=== PATIENT | female | born 1970 | race Caucasian/White ===

== ENCOUNTER 2020-12-18 20:10 | Emergency (ER) | payer OTHER ==
[2020-12-18] MEDS ORDERED: LORazepam 2 MG/ML SDV IVPUSH ONE ×2 (20:36→22:35)
[2020-12-18] MEDS ORDERED: Ondansetron 4 MG/2 ML SDV IVPUSH ONE (20:36)
[2020-12-18] MEDS ORDERED: Sodium Chloride 0.9% 2.5 ML Syringe FLUSH PRN (20:36)
[2020-12-18] MEDS ORDERED: Sodium Chloride 0.9% 1,000 ML IV ONE ×2 (20:36→22:41)
[2020-12-18] MEDS ORDERED: Sodium Chloride 0.9% 10 ML Syringe FLUSH PRN (20:36)
[2020-12-18 21:40] LABS: BLOOD UREA NITROGEN,BUN 4 mg/dL (7.0-18.0); CARBON DIOXIDE,CO2 19.7 mmol/L (21.0-32.0); CHLORIDE,CL 89 mmol/L (98-107); GLUCOSE RANDOM 108 mg/dL (74-106); LIPASE 157 U/L (73-393); POTASSIUM,K 3.9 mmol/L (3.5-5.1); SODIUM,NA 126 mmol/L (136-145)
--- NOTE | 2020-12-18 21:56 | CR ---
INDICATION: Weakness TECHNIQUE: Single view chest. FINDINGS: The lungs are clear. The heart, mediastinum and pulmonary vessels are of normal size. There is no evidence of pleural disease. IMPRESSION: Negative chest. Dictated by Senait Moreno MD @ 12/18/2020 9:54:[address] Senait Moreno @ Dec 18 2020 9:54PM
--- NOTE | 2020-12-18 22:00 | CT ---
Indication: Weakness Technique: Noncontrast head Comparison: No comparison Findings: Axial noncontrast images through the brain parenchyma demonstrates no acute intracranial hemorrhage or mass. No midline shift. No abnormal extra-axial air fluid collections. Paranasal sinuses masters cells skull and scalp appear unremarkable aside from mucosal thickening ethmoid air cells. Impression: No acute intracranial hemorrhage or mass. Please note that all CT scans at this facility use dose modulation, iterative reconstruction, and/or weight-based dosing when appropriate to reduce radiation dose to as low as reasonably achievable. Dictated by Senait Moreno MD @ 12/18/2020 9:58:[address] Senait Moreno @ Dec 18 2020 9:58PM
[2020-12-18] MEDS ORDERED: Aspirin 81 MG Tab.Chew PO ONE (22:18)
[2020-12-18] MEDS ORDERED: Enoxaparin 60 MG/0.6 ML Syringe SUBCUT ONE (22:20)
[2020-12-18] MEDS ORDERED: Thiamine 200 MG/2 ML MDV IVPUSH ONE (22:41)
[2020-12-18] MEDS ORDERED: Folic Acid 50 MG/10 ML MDV IV SCH (22:45)
[2020-12-18] MEDS ORDERED: Iopamidol 755 MG/ML 500 ML Multipack Bottle IVPUSH STA (23:59)
--- NOTE | 2020-12-19 00:56 | CT ---
INDICATION: Shortness of breath COMPARISON: none TECHNIQUE: CT volumetric acquisition was performed of the thorax during intravenous infusion of 100 cc of Isovue 370 nonionic intravenous contrast. Please note that all CT scans at this facility use dose modulation, iterative reconstruction, and/or weight-based dosing when appropriate to reduce radiation dose to as low as reasonably achievable. FINDINGS: The CT images are of acceptable quality and demonstrate normal uniform vascular enhancement within the pulmonary arteries. There are no suspicious filling defects which would indicate pulmonary thromboemboli. There is no evidence of pleural or pericardial fluid. The heart and thoracic aorta appear normal. There is no evidence of lymphadenopathy within the central mediastinum or within either axilla. On lung window settings, there is no evidence of pneumothorax. The pulmonary parenchyma has uniform density and there is no evidence of hemorrhage or pneumonia. 3 centimeter hiatal hernia is present. There is fatty infiltration of the liver. Thyroid normal. IMPRESSION: No evidence of pulmonary thromboembolism. Please note that all CT scans at this facility use dose modulation, iterative reconstruction, and/or weight-based dosing when appropriate to reduce radiation dose to as low as reasonably achievable. Dictated by Yunier Majano MD @ 12/19/2020 12:55:[address] Yunier Majano @ Dec 19 2020 12:55AM
--- NOTE | 2020-12-19 01:33 | EDM.PDOC ---
ED HPI GENERAL MEDICAL PROBLEM - General Chief Complaint: Headache Stated Complaint: SHAKY, HEADACHES, NAUSEA Time Seen by Provider: 12/18/20 20:28 - History of Present Illness INITIAL COMMENTS - FREE TEXT/NARRATIVE: HISTORY AND PHYSICAL: History of present illness: This is a 50-year-old female with no significant past medical history who presents to the ER today secondary to generalized weakness, malaise, headaches, nausea for approximately 2 to 3 weeks. Patient reports that the precipitating factor today that brought her to the ED was 3-4 episodes of emesis with some nausea. Reports headache was worsening. Denies any recent fevers, shakes, chills. Denies any shortness of breath, diaphoresis, pain rating to her arms or back. She does report that she has occasional episodes of chest pain but usually in the morning when she is caring for her mother. Patient reports that she came here in mid October from [place] to care for her mother and feels that she gets extremely stressed around her mother and thinks that the pain that she experiences is secondary to anxiety. She reports that she has had no further chest pain throughout the course of the entire day and has no pain currently. Patient denies any dysuria, frequency, urgency. Patient denies any abdominal pain or discomfort. Patient denies any melena or bright red blood per rectum. Patient denies any coffee-ground emesis or hematemesis. Patient reports her last p.o. intake was yesterday although she does admit to having 2 alcoholic beverages approximately 2 PM today. Patient reports that she drinks approximately 3-4 drinks daily. Patient denies any history of alcohol withdrawal or detox in the past. Patient has any recent cough cold or congestion. Patient denies any Covid exposures or concerns. Patient denies any pain rating to her back. Patient reports that prior to coming to [place] her doctor had started her on Prempro for perimenopausal mood swings. She reports that she thought that the Prempro was causing some of her symptoms so she stopped it but is still having persistent nausea headache and malaise despite stopping the Prempro. Review of systems: As per history of present illness and below otherwise all systems reviewed and negative. Past medical history: As per history of present illness and as reviewed below otherwise noncontributory. Surgical history: As per history of present illness and as reviewed below otherwise noncontributory. Social history: No reported history of drug abuse. Family history: As per history of present illness and as reviewed below otherwise noncontributory. Physical exam: This patient was seen and evaluated during the 2019 SARS-CoV-2 novel coronavirus pandemic period. Community viral transmission is ongoing at time of this encounter and the emergency department is operating under pandemic response procedures. Constitutional: Patient is oriented to person, place, and time. Appears well- developed and well-nourished. No distress. HEENT: Moist mucous membranes Head: Normocephalic and atraumatic Eyes: Right eye exhibits no discharge. Left eye exhibits no discharge. No scleral icterus Neck: Normal range of motion. No tracheal deviation present. Cardiovascular: Normal rate and regular rhythm. No murmurs gallops or rubs. Pulmonary: Effort normal, no respiratory distress. No wheezing rales or rhonchi Abdominal: No distention. Soft nontender nondistended no rebound or guarding. Musculoskeletal: Normal range of motion. No peripheral edema. Neurologic: Alert and oriented to person, place and time. Positive tremulous Skin: [place], warm and dry. Psychiatric: Normal mood and affect. Behavior is normal. Judgment and thought content normal. Nursing note and vital signs have been reviewed Patient's ER physical exam is significant for a well-developed well-nourished 50-year-old female who appears to be in no acute distress but does appear to be somewhat tremulous, tachycardic with a heart rate of 110, slightly hypertensive. Although patient denies any history of significant alcohol abuse or alcohol withdrawal, the patient does appear to have signs that could be possibly related to alcohol withdrawal. Diagnostics: CBC, CMP, within normal limits. Patient's troponin was markedly elevated at 3.12. EKG: EKG date December 18, 2020 9:54 PM As interpreted by ER physician: Chhaya: Nonspecific ST-T wave abnormalities Normal axis No evidence of ST elevation FL Normal sinus rhythm heart rate of 98 EKG #2: EKG date December 18, 2020 at 11:47 PM EKG: As interpreted by ER physician: Chhaya: Nonspecific ST-T wave abnormalities Normal axis No evidence of ST elevation FL Reentrant tachycardia with retrograde P waves with a heart rate of 122 EKG #3: EKG date December 18, 2020 at 11:57 PM EKG: As interpreted by ER physician: Chhaya: Nonspecific ST-T wave abnormalities Normal axis No evidence of ST elevation FL Sinus tachycardia with a heart rate of 103 Chest Xray: Normal cardiac silhouette No infiltrates or effusions identified. No PTX No evidence of acute bony fracture. As interpreted by ER MD: Chhaya CT scan reveals no evidence of PE/dissection NSS x2 L, Therapeutics: [] NSS x2 L, Zofran, thiamine, MVI, folic acid Lovenox 80 mg subcu Aspirin 324 p.o. chewed Ativan 1 mg, Ativan 2 mg IV Assessment and plan: This is a 50-year-old female who presents ER today with signs and symptoms are concerning for possible alcohol withdrawal. Patient's alcohol was noted to be 127 in the ED despite telling me that her last drink was at 2 PM and that she only had 2 drinks today. Patient was treated initially for alcohol withdrawal symptoms with IV fluids, Zofran thiamine multivitamin folic acid. Patient's EKG did not show any evidence of ST elevation FL. After obtaining her troponin, I requestion patient regarding her chest pain and once again she reiterated that she does not have any pain in her chest at the present time and the last time that she had pain was approximately 10 AM today while she was caring for her mother. Patient had EKGs repeated multiple times in the ED with no evidence of ST elevation FL. Patient second EKG did reveal that she was tachycardic with a reentrant tachycardia with retrograde P waves. This resolved spontaneously after short amount time and currently she is in sinus rhythm with a heart rate of 98 on the EKG. Case was discussed with Dr. Beyer in [facility] and she has agreed to assist this with further care of this patient. Case was reviewed by Dr. Crow who is a optical glass inspector and he had no further recommendations prior to transfer. Given the time sensitive matter of a patient with a non-STEMI and the current lack of transfer by ground I feel that the patient absolutely needs to be sent expeditiously to prevent any poor outcome if she should start developing any oth er abnormalities on her EKG or monitor. Patient will be sent by fixed wing to [facility]. Critical Care: The high probability of sudden, clinically significant deterioration in the patient's condition required the highest level of my preparedness to intervene urgently. The services I provided to this patient were to treat and/or prevent clinically significant deterioration. Services included the following: chart data review, reviewing nursing notes and/or old charts, documentation time, talent development consultant collaboration regarding findings and treatment options, medication orders and management, direct patient care, vital sign assessments and ordering, interpreting and reviewing diagnostic studies/lab tests. Aggregate critical care time includes only time during which I was engaged inwork directly related to the patient's care, as described above, whether at the bedside or elsewhere in the Emergency Department. It did not include time spent performing other reported procedures or the services of residents, students, nurses or physician assistants. Critical Care Time: 35 minutes Definitive disposition and diagnosis as appropriate pending reevaluation and review of above. - Related Data Allergies Allergy/AdvReac Type Severity Reaction Status Date / Time sulfamethoxazole Allergy Other Verified 12/18/20 20:31 [From ] trimethoprim [From ] Allergy Other Verified 12/18/20 20:31 Home Meds: Home Meds . [No Known Home Meds] 12/19/20 [History] Past Medical History Cardiovascular History: Reports: Hypertension Psychiatric History: Reports: Depression Social & Family History - Tobacco Use Tobacco Use Status *Q: Never Tobacco User - Recreational Drug Use Recreational Drug Use: No ED ROS GENERAL - Review of Systems Review Of Systems: See Below ED EXAM, GENERAL - Physical Exam Exam: See Below Course - Vital Signs Last Recorded V/S: Last Vital Signs Temp 96.6 F L 12/18/20 20:29 Pulse 101 H 12/19/20 01:28 Resp 20 12/19/20 01:28 BP 125/76 12/19/20 01:28 Pulse Ox 98 12/19/20 01:28 - Orders/Labs/Meds Labs: Laboratory Tests 12/18/20 12/18/20 12/18/20 Range/Units 20:55 20:55 22:32 WBC 8.93 (4.0-11.0) K/uL RBC 4.34 (4.30-5.90) M/uL Hgb 14.8 (12.0-16.0) g/dL Hct 40.3 (36.0-46.0) % MCV 92.9 (80.0-98.0) fL MCH 34.1 H (27.0-32.0) pg MCHC 36.7 (31.0-37.0) g/dL RDW Std Deviation 44.5 (28.0-62.0) fl RDW Coeff of Denae 13 (11.0-15.0) % Plt Count 282 (150-400) K/uL MPV 8.90 (7.40-12.00) fL Neut % (Auto) 73.8 (48.0-80.0) % Lymph % (Auto) 12.1 L (16.0-40.0) % [place] % (Auto) 13.3 (0.0-15.0) % Eos % (Auto) 0.2 (0.0-7.0) % Baso % (Auto) 0.6 (0.0-1.5) % Neut # (Auto) 6.6 H (1.4-5.7) K/uL Lymph # (Auto) 1.1 (0.6-2.4) K/uL [place] # (Auto) 1.2 H (0.0-0.8) K/uL Eos # (Auto) 0.0 (0.0-0.7) K/uL Baso # (Auto) 0.1 (0.0-0.1) K/uL Nucleated RBC % 0.0 /100WBC Nucleated RBCs # 0 K/uL Sodium 126 L (136-145) mmol/L Potassium 3.9 (3.5-5.1) mmol/L Chloride 89 L (98-107) mmol/L Carbon Dioxide 19.7 L (21.0-32.0) mmol/L BUN 4 L (7.0-18.0) mg/dL Creatinine 0.7 (0.6-1.0) mg/dL Est Cr Clr Drug Dosing TNP Estimated GFR (MDRD) > 60.0 ml/min Glucose 108 H (74-106) mg/dL Calcium 8.7 (8.5-10.1) mg/dL Total Bilirubin 0.7 (0.2-1.0) mg/dL AST 103 H (15-37) IU/L ALT 82 H (14-63) IU/L Alkaline Phosphatase 100 (46-116) U/L Troponin I 3.120 H* (0.000-0.056) ng/mL Total Protein 7.9 (6.4-8.2) g/dL Albumin 3.7 (3.4-5.0) g/dL Globulin 4.2 H (2.6-4.0) g/dL Albumin/Globulin Ratio 0.9 (0.9-1.6) Lipase 157 (73-393) U/L TSH, Ultra Sensitive 1.21 (0.36-3.74) uIU/mL Ethyl Alcohol 127 mg/dL SARS-CoV-2 RNA (DELFINA) NEGATIVE (NEGATIVE) 12/19/20 Range/Units 00:10 WBC (4.0-11.0) K/uL RBC (4.30-5.90) M/uL Hgb (12.0-16.0) g/dL Hct (36.0-46.0) % MCV (80.0-98.0) fL MCH (27.0-32.0) pg MCHC (31.0-37.0) g/dL RDW Std Deviation (28.0-62.0) fl RDW Coeff of Denae (11.0-15.0) % Plt Count (150-400) K/uL MPV (7.40-12.00) fL Neut % (Auto) (48.0-80.0) % Lymph % (Auto) (16.0-40.0) % [place] % (Auto) (0.0-15.0) % Eos % (Auto) (0.0-7.0) % Baso % (Auto) (0.0-1.5) % Neut # (Auto) (1.4-5.7) K/uL Lymph # (Auto) (0.6-2.4) K/uL [place] # (Auto) (0.0-0.8) K/uL Eos # (Auto) (0.0-0.7) K/uL Baso # (Auto) (0.0-0.1) K/uL Nucleated RBC % /100WBC Nucleated RBCs # K/uL Sodium (136-145) mmol/L Potassium (3.5-5.1) mmol/L Chloride (98-107) mmol/L Carbon Dioxide (21.0-32.0) mmol/L BUN (7.0-18.0) mg/dL Creatinine (0.6-1.0) mg/dL Est Cr Clr Drug Dosing Estimated GFR (MDRD) ml/min Glucose (74-106) mg/dL Calcium (8.5-10.1) mg/dL Total Bilirubin (0.2-1.0) mg/dL AST (15-37) IU/L ALT (14-63) IU/L Alkaline Phosphatase (46-116) U/L Troponin I 3.903 H* (0.000-0.056) ng/mL Total Protein (6.4-8.2) g/dL Albumin (3.4-5.0) g/dL Globulin (2.6-4.0) g/dL Albumin/Globulin Ratio (0.9-1.6) Lipase (73-393) U/L TSH, Ultra Sensitive (0.36-3.74) uIU/mL Ethyl Alcohol mg/dL SARS-CoV-2 RNA (DELFINA) (NEGATIVE) Meds: Medications Discontinued Medications Generic Name Dose Route Start Last Admin Trade Name Freq PRN Reason Stop Dose Admin Aspirin 324 mg 12/18/20 22:18 12/18/20 22:26 Aspirin 81 Mg Tab.Chew PO 12/18/20 22:19 324 mg ONETIME ONE Administration Enoxaparin Sodium 80 mg 12/18/20 22:20 12/18/20 22:27 Enoxaparin 60 Mg/0.6 Ml Syringe SUBCUT 12/18/20 22:21 80 mg ONETIME ONE Administration Folic Acid 1 mg 12/18/20 22:45 12/19/20 00:41 Folic Acid 50 Mg/10 Ml Mdv IV 1 mg DAILY MAGALIE Administration Sodium Chloride 1,000 mls @ 999 mls/hr 12/18/20 20:36 12/18/20 20:45 Normal Saline IV 12/18/20 21:36 999 mls/hr .Bolus ONE Administration Sodium Chloride 1,000 mls @ 999 mls/hr 12/18/20 22:41 12/19/20 00:42 Normal Saline IV 12/18/20 23:41 999 mls/hr .Bolus ONE Administration Iopamidol 100 ml 12/18/20 23:59 12/19/20 00:00 Iopamidol 755 Mg/Ml 500 Ml Multipack Bottle IVPUSH 12/19/20 00:00 100 ml ONETIME STA Administration Lorazepam 1 mg 12/18/20 20:36 12/18/20 20:45 Lorazepam 2 Mg/Ml Sdv IVPUSH 12/18/20 20:37 1 mg ONETIME ONE Administration Lorazepam 2 mg 12/18/20 22:35 12/18/20 22:42 Lorazepam 2 Mg/Ml Sdv IVPUSH 12/18/20 22:36 2 mg ONETIME ONE Administration Ondansetron HCl 4 mg 12/18/20 20:36 12/18/20 20:45 Ondansetron 4 Mg/2 Ml Sdv IVPUSH 12/18/20 20:37 4 mg ONETIME ONE Administration Sodium Chloride 10 ml 12/18/20 20:36 Sodium Chloride 0.9% 10 Ml Syringe FLUSH ASDIRECTED PRN Keep Vein Open Sodium Chloride 2.5 ml 12/18/20 20:36 Sodium Chloride 0.9% 2.5 Ml Syringe FLUSH ASDIRECTED PRN Keep Vein Open Thiamine HCl 100 mg 12/18/20 22:41 12/18/20 22:48 Thiamine 200 Mg/2 Ml Mdv IVPUSH 12/18/20 22:42 100 mg ONETIME ONE Administration Departure - Departure Time of Disposition: 02:00 Disposition: DC/Tfer to Acute Hospital 02 Condition: Fair Clinical Impression: Non-STEMI (non-ST elevated myocardial infarction), Hyponatremia, AV reentrant tachycardia, Headache, Nausea & vomiting Alcohol intoxication Qualifiers: Complication of substance-induced condition: with unspecified complication Qualified Code(s): F10.929 - Alcohol use, unspecified with intoxication, unspecified - Discharge Information Referrals: PCP,Not In Area [Primary Care Provider] - Forms: ED Department Discharge Sepsis Event Note (ED) - Evaluation Sepsis Screening Result: No Definite Risk
== END 2020-12-19 01:40 ==
LOC: MW.ED 20:10
DX: I21.4 Non-ST elevation (NSTEMI) myocardial infarction (principal); R11.2 Nausea with vomiting, unspecified; R51.9 Headache, unspecified; I47.1 Supraventricular tachycardia; F10.129 Alcohol abuse with intoxication, unspecified; I10 Essential (primary) hypertension; Y90.6 Blood alcohol level of 120-199 mg/100 ml; Z88.1 Allergy status to other antibiotic agents; Z20.822 Contact with and (suspected) exposure to COVID-19
CPT/HCPCS: 36415; 70450; 71045; 71275; 80053; 80307; 83690; 84443; 84484; 85025; 87635; 93005; 96372; 96374; 96375; 96376; 99285; A9270; J1650; J2060; J2405; J3411; J7030; Q9967; 99291; U0002

== ENCOUNTER 2021-01-04 11:13 | Emergency (ER) | payer OTHER ==
[2021-01-04] MEDS ORDERED: Sodium Chloride 0.9% 2.5 ML Syringe FLUSH PRN (11:31)
[2021-01-04] MEDS ORDERED: Sodium Chloride 0.9% 10 ML Syringe FLUSH PRN (11:31)
[2021-01-04] MEDS ORDERED: LORazepam 2 MG/ML SDV IVPUSH ONE (11:37)
[2021-01-04] MEDS ORDERED: chlordiazePOXIDE 25 MG Cap PO ONE (11:37)
[2021-01-04] MEDS ORDERED: Aspirin 81 MG Tab.Chew PO STA (11:37)
--- NOTE | 2021-01-04 11:47 | EDM.PDOC ---
ED HPI GENERAL MEDICAL PROBLEM - General Chief Complaint: Chest Pain Stated Complaint: SHORTNESS OF BREATH Time Seen by Provider: 01/04/21 11:30 Source of Information: Reports: Patient History Limitations: Reports: No Limitations - History of Present Illness INITIAL COMMENTS - FREE TEXT/NARRATIVE: 50-year-old female past medical history alcohol abuse, recent transfer of care to [facility] for NSTEMI presents for chest pain. Patient notes that she was here couple of weeks ago, found to have elevated troponin, sent to [facility] where she underwent cardiac catheterization which was unremarkable. She was started on medical therapy and did not have stents placed. She has been compliant with her medications. She does note that she was unable to pear picker her Librium as the local pharmacies do not have any Librium. She does admit to drinking 2 beers this morning. Patient notes that for the last 2 days she has had a mid substernal heaviness in her chest which is constant. It is associated with shortness of breath. It is nonradiating. No associated diaphoresis or nausea/vomiting. Chest Pain Score (Numeric/FACES): 5 - Related Data Allergies Allergy/AdvReac Type Severity Reaction Status Date / Time sulfamethoxazole Allergy Other Verified 01/04/21 11:42 [From ] trimethoprim [From ] Allergy Other Verified 01/04/21 11:42 Home Meds: Home Meds Aspirin 81 mg PO DAILY 01/04/21 [History] Clopidogrel [Plavix] 75 mg PO DAILY 01/04/21 [History] Escitalopram Oxalate [Lexapro] 10 mg PO DAILY 01/04/21 [History] Losartan [Cozaar] 25 mg PO DAILY 01/04/21 [History] Metoprolol Succinate [Toprol Xl] 50 mg PO DAILY 01/04/21 [History] Rosuvastatin [Crestor] 5 mg PO DAILY 01/04/21 [History] chlordiazePOXIDE [Librium] 5 mg PO DAILY 01/04/21 [History] Past Medical History Cardiovascular History: Reports: Hypertension Psychiatric History: Reports: Depression ED ROS GENERAL - Review of Systems Review Of Systems: Comprehensive ROS is negative, except as noted in HPI. ED EXAM, GENERAL - Physical Exam Exam: See Below Exam Limited By: No Limitations General Appearance: Alert, WD/WN, No Apparent Distress Ears: Hearing Grossly Normal Throat/Mouth: Normal Voice, No Airway Compromise Head: Atraumatic, Normocephalic Neck: Normal Inspection Respiratory/Chest: No Respiratory Distress, Lungs Clear, Normal Breath Sounds, No Accessory Muscle Use Cardiovascular: Normal Peripheral Pulses, Regular Rate, Rhythm, No Edema GI/Abdominal: Soft, Non-Tender Extremities: Normal Inspection Neurological: Alert Psychiatric: Normal Affect, Normal Mood Skin Exam: Warm, Dry, Intact, Normal Color #1 Interpretation EKG Date: 01/04/21 Time: 11:14 Rhythm: NSR Rate (Beats/Min): 76 [place]: Normal P-Wave: Present QRS: Normal ST-T: Normal QT: Normal [place]/PQ Interval: 148 EKG Interpretation Comments: no acute ischemic changes Course - Vital Signs Last Recorded V/S: Last Vital Signs Temp 97.0 F 01/04/21 12:30 Pulse 80 01/04/21 11:31 Resp 18 01/04/21 12:30 BP 124/75 01/04/21 12:30 Pulse Ox 95 01/04/21 12:30 - Orders/Labs/Meds Orders: Active Orders 24 hr Category Date Time Status Cardiac Monitoring [RC] . DIRECTED Care 01/04/21 11:31 Active Pulse Oximetry [RC] ASDIRECTED Care 01/04/21 11:31 Active Sodium Chloride 0.9% [Saline Flush] Med 01/04/21 11:31 Active 10 ml FLUSH ASDIRECTED PRN Sodium Chloride 0.9% [Saline Flush] Med 01/04/21 11:31 Active 2.5 ml FLUSH ASDIRECTED PRN Saline Lock Insert [OM.PC] Stat Oth 01/04/21 11:31 Ordered Medication Orders Sodium Chloride (Sodium Chloride 0.9% 10 Ml Syringe) 10 ml FLUSH ASDIRECTED PRN PRN Reason: Keep Vein Open Last Admin: 01/04/21 12:40 Dose: 10 ml Documented by: LAURI Sodium Chloride (Sodium Chloride 0.9% 2.5 Ml Syringe) 2.5 ml FLUSH ASDIRECTED PRN PRN Reason: Keep Vein Open Last Admin: 01/04/21 12:55 Dose: 2.5 ml Documented by: HARJEET Labs: Laboratory Tests 01/04/21 01/04/21 01/04/21 Range/Units 11:15 11:15 11:15 WBC 12.59 H (4.0-11.0) K/uL RBC 4.48 (4.30-5.90) M/uL Hgb 15.4 (12.0-16.0) g/dL Hct 42.1 (36.0-46.0) % MCV 94.0 (80.0-98.0) fL MCH 34.4 H (27.0-32.0) pg MCHC 36.6 (31.0-37.0) g/dL RDW Std Deviation 43.1 (28.0-62.0) fl RDW Coeff of Denae 13 (11.0-15.0) % Plt Count 460 H (150-400) K/uL MPV 9.50 (7.40-12.00) fL Neut % (Auto) 70.1 (48.0-80.0) % Lymph % (Auto) 15.2 L (16.0-40.0) % [place] % (Auto) 13.2 (0.0-15.0) % Eos % (Auto) 1.1 (0.0-7.0) % Baso % (Auto) 0.4 (0.0-1.5) % Neut # (Auto) 8.8 H (1.4-5.7) K/uL Lymph # (Auto) 1.9 (0.6-2.4) K/uL [place] # (Auto) 1.7 H (0.0-0.8) K/uL Eos # (Auto) 0.1 (0.0-0.7) K/uL Baso # (Auto) 0.1 (0.0-0.1) K/uL Nucleated RBC % 0.0 /100WBC Nucleated RBCs # 0 K/uL INR 0.95 APTT 24.2 (18.6-31.3) SEC Sodium 124 L (136-145) mmol/L Potassium 4.2 (3.5-5.1) mmol/L Chloride 88 L (98-107) mmol/L Carbon Dioxide 23.8 (21.0-32.0) mmol/L BUN 10 (7.0-18.0) mg/dL Creatinine 0.8 (0.6-1.0) mg/dL Est Cr Clr Drug Dosing 82.98 mL/min Estimated GFR (MDRD) > 60.0 ml/min Glucose 90 (74-106) mg/dL Calcium 8.9 (8.5-10.1) mg/dL Magnesium 1.8 (1.8-2.4) mg/dL Total Bilirubin 0.7 (0.2-1.0) mg/dL AST 41 H (15-37) IU/L ALT 49 (14-63) IU/L Alkaline Phosphatase 92 (46-116) U/L Troponin I 0.054 (0.000-0.056) ng/mL B-Natriuretic Peptide (<100) PG/ML Total Protein 8.0 (6.4-8.2) g/dL Albumin 3.8 (3.4-5.0) g/dL Globulin 4.2 H (2.6-4.0) g/dL Albumin/Globulin Ratio 0.9 (0.9-1.6) 01/04/21 01/04/21 Range/Units 11:15 14:20 WBC (4.0-11.0) K/uL RBC (4.30-5.90) M/uL Hgb (12.0-16.0) g/dL Hct (36.0-46.0) % MCV (80.0-98.0) fL MCH (27.0-32.0) pg MCHC (31.0-37.0) g/dL RDW Std Deviation (28.0-62.0) fl RDW Coeff of Denae (11.0-15.0) % Plt Count (150-400) K/uL MPV (7.40-12.00) fL Neut % (Auto) (48.0-80.0) % Lymph % (Auto) (16.0-40.0) % [place] % (Auto) (0.0-15.0) % Eos % (Auto) (0.0-7.0) % Baso % (Auto) (0.0-1.5) % Neut # (Auto) (1.4-5.7) K/uL Lymph # (Auto) (0.6-2.4) K/uL [place] # (Auto) (0.0-0.8) K/uL Eos # (Auto) (0.0-0.7) K/uL Baso # (Auto) (0.0-0.1) K/uL Nucleated RBC % /100WBC Nucleated RBCs # K/uL INR APTT (18.6-31.3) SEC Sodium (136-145) mmol/L Potassium (3.5-5.1) mmol/L Chloride (98-107) mmol/L Carbon Dioxide (21.0-32.0) mmol/L BUN (7.0-18.0) mg/dL Creatinine (0.6-1.0) mg/dL Est Cr Clr Drug Dosing mL/min Estimated GFR (MDRD) ml/min Glucose (74-106) mg/dL Calcium (8.5-10.1) mg/dL Magnesium (1.8-2.4) mg/dL Total Bilirubin (0.2-1.0) mg/dL AST (15-37) IU/L ALT (14-63) IU/L Alkaline Phosphatase (46-116) U/L Troponin I 0.057 H (0.000-0.056) ng/mL B-Natriuretic Peptide 172 H (<100) PG/ML Total Protein (6.4-8.2) g/dL Albumin (3.4-5.0) g/dL Globulin (2.6-4.0) g/dL Albumin/Globulin Ratio (0.9-1.6) Meds: Medications Generic Name Dose Route Start Last Admin Trade Name Juan PRN Reason Stop Dose Admin Sodium Chloride 10 ml 01/04/21 11:31 01/04/21 12:40 Sodium Chloride 0.9% 10 Ml Syringe FLUSH 10 ml ASDIRECTED PRN Administration Keep Vein Open Sodium Chloride 2.5 ml 01/04/21 11:31 01/04/21 12:55 Sodium Chloride 0.9% 2.5 Ml Syringe FLUSH 2.5 ml ASDIRECTED PRN Administration Keep Vein Open Discontinued Medications Generic Name Dose Route Start Last Admin Trade Name Juan PRN Reason Stop Dose Admin Aspirin 162 mg 01/04/21 11:37 01/04/21 12:39 Aspirin 81 Mg Tab.Chew PO 01/04/21 11:38 162 mg STAT STA Administration Chlordiazepoxide HCl 50 mg 01/04/21 11:37 01/04/21 12:40 Chlordiazepoxide 25 Mg Cap PO 01/04/21 11:38 50 mg ONETIME ONE Administration Sodium Chloride 1,000 mls @ 999 mls/hr 01/04/21 12:41 01/04/21 12:52 Normal Saline IV 01/04/21 13:41 999 mls/hr .Bolus ONE Administration Lorazepam 1 mg 01/04/21 11:37 01/04/21 12:39 Lorazepam 2 Mg/Ml Sdv IVPUSH 01/04/21 11:38 1 mg ONETIME ONE Administration - Re-Assessments/Exams Free Text/Narrative Re-Assessment/Exam: 01/04/21 11:49 No acute ischemic changes on EKG. Will get labs including troponin. Will give aspirin 162 mg, patient did receive aspirin 81 mg with daily meds. Patient is anxious and with known alcohol problems, will give Ativan and Librium to prevent withdrawal. 01/04/21 15:12 No significant increase in troponin. Will discharge with medication for alcohol withdrawal. Patient has appointment with her doctor tomorrow morning for reassessment. No longer with any chest pain. Departure - Departure Time of Disposition: 15:12 Disposition: Home, Self-Care 01 Condition: Good Clinical Impression: Chest pain Qualifiers: Chest pain type: unspecified Qualified Code(s): R07.9 - Chest pain, unspecified - Discharge Information Instructions: Nonspecific Chest Pain, Adult Forms: ED Department Discharge Additional Instructions: Please follow-up with your physician tomorrow. I have prescribed medication for alcohol withdrawal to your pharmacy. If your chest pain returns you should com e back to the hospital for reassessment. The following information is given to patients seen in the emergency department who are being discharged to home. This information is to outline your options for follow-up care. We provide all patients seen in our emergency department with a follow-up referral. The need for follow-up, as well as the timing and circumstances, are variable depending upon the specifics of your emergency department visit. If you don't have a primary care physician on staff, we will provide you with a referral. We always advise you to contact your personal physician following an emergency department visit to inform them of the circumstance of the visit and for follow-up with them and/or the need for any referrals to a consulting specialist. The emergency department will also refer you to a specialist when appropriate. This referral assures that you have the opportunity for follow-up care with a specialist. All of these measure are taken in an effort to provide you with optimal care, which includes your follow-up. Under all circumstances we always encourage you to contact your private physician who remains a resource for coordinating your care. When calling for follow-up care, please make the office aware that this follow-up is from your recent emergency room visit. If for any reason you are refused follow-up, please contact the [facility] Emergency Department at and asked to speak to the emergency department charge nurse. Please follow up with your primary care physician. If you do not have a primary care physician, see below: [facility] [address] [address] My [facility] [address] [place] [address] [facility] [address] [place] [address] Sepsis Event Note (ED) - Focused Exam Vital Signs: Vital Signs Temp Pulse Resp BP Pulse Ox 01/04/21 12:30 97.0 F 18 124/75 95 01/04/21 11:31 97.0 F 80 18 120/70 97 01/04/21 11:13 97.5 F 79 16 131/87 97 - My Orders Last 24 Hours: My Active Orders 01/04/21 11:31 Cardiac Monitoring [RC] . DIRECTED Pulse Oximetry [RC] ASDIRECTED Sodium Chloride 0.9% [Saline Flush] 10 ml FLUSH ASDIRECTED PRN Sodium Chloride 0.9% [Saline Flush] 2.5 ml FLUSH ASDIRECTED PRN Saline Lock Insert [OM.PC] Stat - Assessment/Plan Last 24 Hours: My Active Orders 01/04/21 11:31 Cardiac Monitoring [RC] . DIRECTED Pulse Oximetry [RC] ASDIRECTED Sodium Chloride 0.9% [Saline Flush] 10 ml FLUSH ASDIRECTED PRN Sodium Chloride 0.9% [Saline Flush] 2.5 ml FLUSH ASDIRECTED PRN Saline Lock Insert [OM.PC] Stat
--- NOTE | 2021-01-04 12:18 | CR ---
INDICATION: Chest pain. TECHNIQUE: Chest 1 view. COMPARISON: Chest radiograph 12/18/2020. FINDINGS: No focal consolidation, pleural effusion, pneumothorax. Probable nipple shadow over the right lung base. Normal heart size and pulmonary vascularity. The bones are unremarkable. IMPRESSION: No acute cardiopulmonary findings. Dictated by Shraddha Freed MD @ 01/04/2021 12:17:[address] Shraddha Freed @ Jan 04 2021 12:17PM
[2021-01-04 12:25] LABS: BLOOD UREA NITROGEN,BUN 10 mg/dL (7.0-18.0); CARBON DIOXIDE,CO2 23.8 mmol/L (21.0-32.0); CHLORIDE,CL 88 mmol/L (98-107); GLUCOSE RANDOM 90 mg/dL (74-106); POTASSIUM,K 4.2 mmol/L (3.5-5.1); SODIUM,NA 124 mmol/L (136-145)
[2021-01-04] MEDS ORDERED: Sodium Chloride 0.9% 1,000 ML IV ONE (12:41)
== END 2021-01-04 15:41 | disposition home or self-care (01) ==
LOC: MW.ED 11:13
DX: R07.2 Precordial pain (principal); I10 Essential (primary) hypertension; Z88.1 Allergy status to other antibiotic agents; Z79.82 Long term (current) use of aspirin; Z79.02 Long term (current) use of antithrombotics/antiplatelets; Z79.899 Other long term (current) drug therapy
CPT/HCPCS: 36415; 71045; 80053; 83735; 83880; 84484; 85025; 85610; 85730; 93005; 96374; 99285; A9270; J2060; J7030

== ENCOUNTER 2021-01-05 10:10 | Emergency (ER) | payer OTHER ==
[2021-01-05] MEDS ORDERED: Sodium Chloride 0.9% 10 ML Syringe FLUSH PRN (10:28)
[2021-01-05] MEDS ORDERED: Sodium Chloride 0.9% 2.5 ML Syringe FLUSH PRN (10:28)
[2021-01-05] MEDS ORDERED: Aspirin 81 MG Tab.Chew PO ONE (10:28)
--- NOTE | 2021-01-05 10:39 | EDM.PDOC ---
ED HPI GENERAL MEDICAL PROBLEM - General Chief Complaint: Cardiovascular Problem Stated Complaint: SOB, TROUBLE BREATHING Time Seen by Provider: 01/05/21 10:27 Source of Information: Reports: Patient History Limitations: Reports: No Limitations - History of Present Illness INITIAL COMMENTS - FREE TEXT/NARRATIVE: 50-year-old female past medical history alcohol abuse, recent NSTEMI presents for chest pain. Patient notes that she was here couple of weeks ago, diagnosed with NSTEMI with a troponin of 3, sent to [facility] and had a cardiac catheterization which did not reveal significant coronary disease. She was medically managed and is now on Plavix, aspirin, statin. She came to the emergency department yesterday for 2 days of chest pressure. She does note that she abuses alcohol and has been trying to cut back but is still drinking Clamato drinks. Yesterday she had an ER work-up with 3-hour repeat troponin without significant rise. She felt better yesterday after Ativan and Librium. She did get a prescription for Valium as none of the local pharmacies carry Librium 25 mg. She states that this helped with her symptoms for about 30 minutes. Today she is coming in because her chest pain recurred waking her up from sleep this morning. Again she states she took the Valium and it went away but came back after about 30 minutes. She does endorse anxiety and some shortness of breath. chest Pain Score (Numeric/FACES): 7 - Related Data Allergies Allergy/AdvReac Type Severity Reaction Status Date / Time sulfamethoxazole Allergy Other Verified 01/05/21 11:00 [From ] trimethoprim [From ] Allergy Other Verified 01/05/21 11:00 Home Meds: Home Meds Aspirin 81 mg PO DAILY 01/04/21 [History] Clopidogrel [Plavix] 75 mg PO DAILY 01/04/21 [History] Escitalopram Oxalate [Lexapro] 10 mg PO DAILY 01/04/21 [History] Losartan [Cozaar] 25 mg PO DAILY 01/04/21 [History] Metoprolol Succinate [Toprol Xl] 50 mg PO DAILY 01/04/21 [History] Rosuvastatin [Crestor] 5 mg PO DAILY 01/04/21 [History] chlordiazePOXIDE [Librium] 5 mg PO DAILY 01/04/21 [History] diazePAM [Valium] See Taper PO ASDIRECTED #18 tablet 01/04/21 [Rx] Past Medical History Cardiovascular History: Reports: Hypertension Psychiatric History: Reports: Depression - Infectious Disease History Infectious Disease History: Reports: None Social & Family History - Caffeine Use Caffeine Use: Reports: None ED ROS GENERAL - Review of Systems Review Of Systems: Comprehensive ROS is negative, except as noted in HPI. ED EXAM, GENERAL - Physical Exam Exam: See Below Exam Limited By: No Limitations General Appearance: Alert, WD/WN, No Apparent Distress Ears: Hearing Grossly Normal Throat/Mouth: Normal Voice, No Airway Compromise Head: Atraumatic, Normocephalic Neck: Normal Inspection Respiratory/Chest: No Respiratory Distress, Lungs Clear, Normal Breath Sounds, No Accessory Muscle Use Cardiovascular: Normal Peripheral Pulses, Regular Rate, Rhythm Extremities: Normal Inspection Neurological: Alert, Normal Cognition, Normal Gait Psychiatric: Normal Affect, Normal Mood Skin Exam: Warm, Dry, Normal Color #1 Interpretation EKG Date: 01/05/21 Time: 10:33 Rhythm: NSR Rate (Beats/Min): 85 [place]: Normal P-Wave: Present QRS: Normal ST-T: Normal QT: Normal [place]/PQ Interval: 144 Comparison: No Change EKG Interpretation Comments: no acute ischemic changes although very poor baseline obscures definitive interpretation Course - Vital Signs Last Recorded V/S: Last Vital Signs Temp 96.3 F L 01/05/21 10:45 Pulse 84 01/05/21 12:38 Resp 18 01/05/21 12:38 BP 130/82 01/05/21 12:38 Pulse Ox 97 01/05/21 12:38 - Orders/Labs/Meds Orders: Active Orders 24 hr Category Date Time Status TROPONIN I [CHEM] Stat Lab 01/05/21 12:55 Received Sodium Chloride 0.9% [Normal Saline] 1,000 ml Med 01/05/21 12:42 Active IV .Bolus Sodium Chloride 0.9% [Saline Flush] Med 01/05/21 10:28 Active 10 ml FLUSH ASDIRECTED PRN Sodium Chloride 0.9% [Saline Flush] Med 01/05/21 10:28 Active 2.5 ml FLUSH ASDIRECTED PRN Saline Lock Insert [OM.PC] Stat Oth 01/05/21 10:28 Ordered Medication Orders Sodium Chloride (Normal Saline) 1,000 mls @ 999 mls/hr IV .Bolus ONE Stop: 01/05/21 13:42 Sodium Chloride (Sodium Chloride 0.9% 10 Ml Syringe) 10 ml FLUSH ASDIRECTED PRN PRN Reason: Keep Vein Open Sodium Chloride (Sodium Chloride 0.9% 2.5 Ml Syringe) 2.5 ml FLUSH ASDIRECTED PRN PRN Reason: Keep Vein Open Labs: Laboratory Tests 01/05/21 01/05/21 01/05/21 Range/Units 11:42 11:42 11:42 WBC 10.93 (4.0-11.0) K/uL RBC 4.36 (4.30-5.90) M/uL Hgb 14.9 (12.0-16.0) g/dL Hct 40.3 (36.0-46.0) % MCV 92.4 (80.0-98.0) fL MCH 34.2 H (27.0-32.0) pg MCHC 37.0 (31.0-37.0) g/dL RDW Std Deviation 41.5 (28.0-62.0) fl RDW Coeff of Denae 12 (11.0-15.0) % Plt Count 453 H (150-400) K/uL MPV 9.50 (7.40-12.00) fL Neut % (Auto) 70.8 (48.0-80.0) % Lymph % (Auto) 14.8 L (16.0-40.0) % [place] % (Auto) 12.9 (0.0-15.0) % Eos % (Auto) 1.0 (0.0-7.0) % Baso % (Auto) 0.5 (0.0-1.5) % Neut # (Auto) 7.7 H (1.4-5.7) K/uL Lymph # (Auto) 1.6 (0.6-2.4) K/uL [place] # (Auto) 1.4 H (0.0-0.8) K/uL Eos # (Auto) 0.1 (0.0-0.7) K/uL Baso # (Auto) 0.1 (0.0-0.1) K/uL Nucleated RBC % 0.0 /100WBC Nucleated RBCs # 0 K/uL INR 0.96 APTT 23.6 (18.6-31.3) SEC Sodium (136-145) mmol/L Potassium (3.5-5.1) mmol/L Chloride (98-107) mmol/L Carbon Dioxide (21.0-32.0) mmol/L BUN (7.0-18.0) mg/dL Creatinine (0.6-1.0) mg/dL Est Cr Clr Drug Dosing mL/min Estimated GFR (MDRD) ml/min Glucose (74-106) mg/dL Calcium (8.5-10.1) mg/dL Total Bilirubin (0.2-1.0) mg/dL AST (15-37) IU/L ALT (14-63) IU/L Alkaline Phosphatase (46-116) U/L Troponin I (0.000-0.056) ng/mL B-Natriuretic Peptide (<100) PG/ML Total Protein (6.4-8.2) g/dL Albumin (3.4-5.0) g/dL Globulin (2.6-4.0) g/dL Albumin/Globulin Ratio (0.9-1.6) SARS-CoV-2 RNA (DELFINA) NEGATIVE (NEGATIVE) 01/05/21 01/05/21 Range/Units 11:42 11:42 WBC (4.0-11.0) K/uL RBC (4.30-5.90) M/uL Hgb (12.0-16.0) g/dL Hct (36.0-46.0) % MCV (80.0-98.0) fL MCH (27.0-32.0) pg MCHC (31.0-37.0) g/dL RDW Std Deviation (28.0-62.0) fl RDW Coeff of Denae (11.0-15.0) % Plt Count (150-400) K/uL MPV (7.40-12.00) fL Neut % (Auto) (48.0-80.0) % Lymph % (Auto) (16.0-40.0) % [place] % (Auto) (0.0-15.0) % Eos % (Auto) (0.0-7.0) % Baso % (Auto) (0.0-1.5) % Neut # (Auto) (1.4-5.7) K/uL Lymph # (Auto) (0.6-2.4) K/uL [place] # (Auto) (0.0-0.8) K/uL Eos # (Auto) (0.0-0.7) K/uL Baso # (Auto) (0.0-0.1) K/uL Nucleated RBC % /100WBC Nucleated RBCs # K/uL INR APTT (18.6-31.3) SEC Sodium 123 L (136-145) mmol/L Potassium 3.9 (3.5-5.1) mmol/L Chloride 86 L (98-107) mmol/L Carbon Dioxide 25.4 (21.0-32.0) mmol/L BUN 10 (7.0-18.0) mg/dL Creatinine 0.7 (0.6-1.0) mg/dL Est Cr Clr Drug Dosing 101.66 mL/min Estimated GFR (MDRD) > 60.0 ml/min Glucose 126 H (74-106) mg/dL Calcium 9.1 (8.5-10.1) mg/dL Total Bilirubin 0.8 (0.2-1.0) mg/dL AST 42 H (15-37) IU/L ALT 49 (14-63) IU/L Alkaline Phosphatase 90 (46-116) U/L Troponin I < 0.050 (0.000-0.056) ng/mL B-Natriuretic Peptide 250 H (<100) PG/ML Total Protein 7.7 (6.4-8.2) g/dL Albumin 3.6 (3.4-5.0) g/dL Globulin 4.1 H (2.6-4.0) g/dL Albumin/Globulin Ratio 0.9 (0.9-1.6) SARS-CoV-2 RNA (DELFINA) (NEGATIVE) Meds: Medications Generic Name Dose Route Start Last Admin Trade Name Freq PRN Reason Stop Dose Admin Sodium Chloride 1,000 mls @ 999 mls/hr 01/05/21 12:42 Normal Saline IV 01/05/21 13:42 .Bolus ONE Sodium Chloride 10 ml 01/05/21 10:28 Sodium Chloride 0.9% 10 Ml Syringe FLUSH ASDIRECTED PRN Keep Vein Open Sodium Chloride 2.5 ml 01/05/21 10:28 Sodium Chloride 0.9% 2.5 Ml Syringe FLUSH ASDIRECTED PRN Keep Vein Open Discontinued Medications Generic Name Dose Route Start Last Admin Trade Name Juan PRN Reason Stop Dose Admin Aspirin 324 mg 01/05/21 10:28 01/05/21 11:37 Aspirin 81 Mg Tab.Chew PO 01/05/21 10:29 324 mg ONETIME ONE Administration Chlordiazepoxide HCl 50 mg 01/05/21 11:17 01/05/21 11:38 Chlordiazepoxide 25 Mg Cap PO 01/05/21 11:18 50 mg ONETIME ONE Administration Lorazepam 1 mg 01/05/21 11:17 01/05/21 11:38 Lorazepam 2 Mg/Ml Sdv IVPUSH 01/05/21 11:18 1 mg ONETIME ONE Administration - Re-Assessments/Exams Free Text/Narrative Re-Assessment/Exam: 01/05/21 11:16 We will get cardiac work-up labs. Will give Ativan and Librium as this helped patient yesterday. Will give aspirin. 01/05/21 11:20 Patient declines CXR as she had one yesterday 01/05/21 13:01 Patient troponin is negative. A repeat troponin was drawn however patient is unable to stay for the result because she has a very important appointment at 2 PM. Will discharge patient and call back with results. Departure - Departure Time of Disposition: 13:02 Disposition: Home, Self-Care 01 Condition: Good Clinical Impression: Hyponatremia Chest pain Qualifiers: Chest pain type: unspecified Qualified Code(s): R07.9 - Chest pain, unspecified Instructions: Nonspecific Chest Pain, Adult Referrals: PCP,Not In Area [Primary Care Provider] - Forms: ED Department Discharge Additional Instructions: The following information is given to patients seen in the emergency department who are being discharged to home. This information is to outline your options for follow-up care. We provide all patients seen in our emergency department with a follow-up referral. The need for follow-up, as well as the timing and circumstances, are variable depending upon the specifics of your emergency department visit. If you don't have a primary care physician on staff, we will provide you with a referral. We always advise you to contact your personal physician following an emergency department visit to inform them of the circumstance of the visit and for follow-up with them and/or the need for any referrals to a consulting specialist. The emergency department will also refer you to a specialist when appropriate. This referral assures that you have the opportunity for follow-up care with a specialist. All of these measure are taken in an effort to provide you with optimal care, which includes your follow-up. Under all circumstances we always encourage you to contact your private physician who remains a resource for coordinating your care. When calling for follow-up care, please make the office aware that this follow-up is from your recent emergency room visit. If for any reason you are refused follow-up, please contact the [facility] Emergency Department at and asked to speak to the emergency department charge nurse. Please follow up with your primary care physician. If you do not have a primary care physician, see below: [facility] [address] [place] [phone] [facility] [address] [place] [address] [facility] [address] [place] [id number] Sepsis Event Note (ED) - Focused Exam Vital Signs: Vital Signs Temp Pulse Resp BP Pulse Ox 01/05/21 12:38 84 18 130/82 97 01/05/21 11:40 85 18 116/82 95 01/05/21 10:45 96.3 F L 88 20 109/70 96 - My Orders Last 24 Hours: My Active Orders 01/05/21 10:28 Sodium Chloride 0.9% [Saline Flush] 10 ml FLUSH ASDIRECTED PRN Sodium Chloride 0.9% [Saline Flush] 2.5 ml FLUSH ASDIRECTED PRN Saline Lock Insert [OM.PC] Stat 01/05/21 12:42 Sodium Chloride 0.9% [Normal Saline] 1,000 ml IV .Bolus 01/05/21 12:55 TROPONIN I [CHEM] Stat - Assessment/Plan Last 24 Hours: My Active Orders 01/05/21 10:28 Sodium Chloride 0.9% [Saline Flush] 10 ml FLUSH ASDIRECTED PRN Sodium Chloride 0.9% [Saline Flush] 2.5 ml FLUSH ASDIRECTED PRN Saline Lock Insert [OM.PC] Stat 01/05/21 12:42 Sodium Chloride 0.9% [Normal Saline] 1,000 ml IV .Bolus 01/05/21 12:55 TROPONIN I [CHEM] Stat
[2021-01-05] MEDS ORDERED: LORazepam 2 MG/ML SDV IVPUSH ONE (11:17)
[2021-01-05] MEDS ORDERED: chlordiazePOXIDE 25 MG Cap PO ONE (11:17)
[2021-01-05 12:19] LABS: BLOOD UREA NITROGEN,BUN 10 mg/dL (7.0-18.0); CARBON DIOXIDE,CO2 25.4 mmol/L (21.0-32.0); CHLORIDE,CL 86 mmol/L (98-107); GLUCOSE RANDOM 126 mg/dL (74-106); POTASSIUM,K 3.9 mmol/L (3.5-5.1); SODIUM,NA 123 mmol/L (136-145)
[2021-01-05] MEDS ORDERED: Sodium Chloride 0.9% 1,000 ML IV ONE (12:42)
== END 2021-01-05 13:09 | disposition home or self-care (01) ==
LOC: MW.ED 10:10
DX: R07.9 Chest pain, unspecified (principal); E87.6 Hypokalemia; I25.2 Old myocardial infarction; I10 Essential (primary) hypertension; Z95.5 Presence of coronary angioplasty implant and graft; Z79.82 Long term (current) use of aspirin; Z79.01 Long term (current) use of anticoagulants; Z88.2 Allergy status to sulfonamides; Z20.822 Contact with and (suspected) exposure to COVID-19; Z79.899 Other long term (current) drug therapy
CPT/HCPCS: 36415; 80053; 83880; 84484; 85025; 85610; 85730; 87635; 93005; 96374; 99285; A9270; J2060; U0002